=== PATIENT | female | born 1970 | race Caucasian/White ===

== ENCOUNTER 2019-11-12 23:09 | Day surgery (SDC) | payer BC ==
[2019-11-12] MEDS ORDERED: Tamsulosin 0.4 MG Cap.ER PO ONE (23:28)
[2019-11-12] MEDS ORDERED: Ketorolac 30 MG/ML SDV IVPUSH STA (23:28)
[2019-11-12] MEDS ORDERED: Ondansetron 4 MG/2 ML SDV IVPUSH ONE (23:28)
[2019-11-12] MEDS ORDERED: HYDROmorphone 1 MG/ML Syringe IVPUSH ONE (23:28)
[2019-11-12] MEDS ORDERED: Sodium Chloride 0.9% 1,000 ML IV SCH (23:30)
--- NOTE | 2019-11-12 23:32 | EDM.PDOC ---
ED HPI GENERAL MEDICAL PROBLEM - General Chief Complaint: Flank Pain Stated Complaint: SIDE PAIN Time Seen by Provider: 11/12/19 23:17 Source of Information: Reports: Patient, Family () History Limitations: Reports: No Limitations - History of Present Illness INITIAL COMMENTS - FREE TEXT/NARRATIVE: Mrs. Tobias is a very pleasant 49-year-old woman with a past medical history significant for hypertension, who states that she developed sudden onset right flank pain and nausea around 22:20 this evening. The pain does not radiate. No associated constipation, diarrhea, or urinary symptoms. The patient states that she had similar pain about 3 years ago, related to uterine hemorrhage. The patient subsequently underwent a partial hysterectomy. The patient denies recent fever, chills, cough, dyspnea, chest pain, palpitations, nausea, vomiting, constipation, diarrhea, abdominal pain, urinary symptoms, recent weight gain or weight loss, recent bloody bowel movements or black bowel movements, recent joint aches, headaches, or rashes. Here in the ED, the patient's initial BP is found to be elevated at 200/127, otherwise, she is hemodynamically stable, afebrile, saturating 97% on room air. The patient does not have a PCP. Her Biomedical Specialist is Dr. Yolanda Uriarte. She did not receive an influenza vaccine this season, and declined an offer to receive one here today. Right Flank Pain Score (Numeric/FACES): 10 - Related Data Allergies Allergy/AdvReac Type Severity Reaction Status Date / Time Penicillins Allergy Severe Hives Verified 11/12/19 23:18 Home Meds: Home Meds . [No Known Home Meds] 11/12/19 [History] Past Medical History HEENT History: Reports: Impaired Vision Other HEENT History: wears contacts Cardiovascular History: Reports: Hypertension - Past Surgical History Female Surgical History: Reports: Endometrial Ablation, Hysterectomy, Tubal Ligation Social & Family History - Tobacco Use Smoking Status *Q: Current Every Day Smoker Years of Tobacco use: 31 Packs/Tins Daily: 0.1 - Alcohol Use Alcohol Use History: Yes Days Per Week of Alcohol Use: 3 Number of Drinks Per Day: 3 Total Drinks Per Week: 9 - Recreational Drug Use Recreational Drug Use: No - Living Situation & Occupation Living situation: Reports: , with Spouse Occupation: Employed ([employer]) ED ROS GENERAL - Review of Systems Review Of Systems: Comprehensive ROS is negative, except as noted in HPI. ED EXAM, RENAL/ - Physical Exam Exam: See Below Exam Limited By: No Limitations General Appearance: Alert, WD/WN, No Apparent Distress Eye Exam: Bilateral Eye: EOMI, Normal Inspection Ears: Normal External Exam, Hearing Grossly Normal Nose: Normal Inspection Throat/Mouth: Normal Inspection, Normal Lips, Normal Voice, No Airway Compromise Head: Atraumatic, Normocephalic Neck: Normal Inspection, Full Range of Motion Respiratory/Chest: No Respiratory Distress, Lungs Clear, Normal Breath Sounds, No Accessory Muscle Use Cardiovascular: Normal Peripheral Pulses, Regular Rate, Rhythm, No Edema, No Gallop, No JVD, No Murmur, No Rub GI/Abdominal: Normal Bowel Sounds, Soft, Non-Tender, No Organomegaly, No Distention, No Abnormal Bruit, No Mass (Female) Exam: Deferred Rectal (Female) Exam: Deferred Back Exam: Normal Inspection, Full Range of Motion, CVA Tenderness (R). No: CVA Tenderness (L) Extremities: Normal Inspection, Normal Range of Motion, No Pedal Edema, Normal Capillary Refill Neurological: Alert, Oriented, Normal Cognition, No Motor/Sensory Deficits Psychiatric: Normal Affect Skin Exam: Warm, Dry, Intact, Normal Color, No Rash Course - Vital Signs Last Recorded V/S: Last Vital Signs Temp 36.3 C 11/12/19 23:18 Pulse 93 11/12/19 23:18 Resp 19 11/12/19 23:18 BP 200/127 H 11/12/19 23:18 Pulse Ox 97 11/12/19 23:18 - Orders/Labs/Meds Orders: Active Orders 24 hr Category Date Time Status Abdomen Pelvis wo Cont [CT] Stat Exams 11/12/19 23:28 Taken Sodium Chloride 0.9% [Normal Saline] 1,000 ml Med 11/12/19 23:30 Active IV ASDIRECTED Schedule Procedure [COMM] Stat Oth 11/13/19 00:57 Ordered Medication Orders Sodium Chloride (Normal Saline) 1,000 mls @ 150 mls/hr IV ASDIRECTED ESTEFANÍA Last Admin: 11/12/19 23:40 Dose: 150 mls/hr Labs: Laboratory Tests 11/12/19 11/12/19 11/13/19 Range/Units 23:37 23:37 00:05 WBC 11.33 H (3.98-10.04) K/mm3 RBC 4.44 (3.98-5.22) M/mm3 Hgb 14.9 (11.2-15.7) gm/dl Hct 44.1 (34.1-44.9) % MCV 99.3 H (79.4-94.8) fl MCH 33.6 H (25.6-32.2) pg MCHC 33.8 (32.2-35.5) g/dl RDW Std Deviation 45.1 (36.4-46.3) fL Plt Count 241 (182-369) K/mm3 MPV 9.9 (9.4-12.3) fl Neutrophils % (Manual) 56 (40-60) % Band Neutrophils % 0 (0-10) % Lymphocytes % (Manual) 37 (20-40) % Atypical Lymphs % 0 % Monocytes % (Manual) 6 (2-10) % Eosinophils % (Manual) 1 (0.7-5.8) % Basophils % (Manual) 0 L (0.1-1.2) Platelet Estimate Adequate Plt Morphology Comment Normal Macrocytosis 1+ slight Ovalocytes 2+ moderate RBC Morph Comment Not Reportable Sodium 142 (136-145) mEq/L Potassium 3.0 L (3.5-5.1) mEq/L Chloride 106 (98-107) mEq/L Carbon Dioxide 24 (21-32) mEq/L Anion Gap 15.0 (5-15) BUN 13 (7-18) mg/dL Creatinine 0.8 (0.55-1.02) mg/dL Est Cr Clr Drug Dosing 62.44 mL/min Estimated GFR (MDRD) > 60 (>60) mL/min BUN/Creatinine Ratio 16.3 (14-18) Glucose 115 H (74-106) mg/dL Calcium 9.3 (8.5-10.1) mg/dL Total Bilirubin 0.6 (0.2-1.0) mg/dL AST 42 H (15-37) U/L ALT 52 (14-59) U/L Alkaline Phosphatase 110 (46-116) U/L Total Protein 7.7 (6.4-8.2) g/dl Albumin 4.3 (3.4-5.0) g/dl Globulin 3.4 gm/dL Albumin/Globulin Ratio 1.3 (1-2) Urine Color Light yellow (Yellow) Urine Appearance Clear (Clear) Urine pH 7.0 (5.0-8.0) Ur Specific [place] 1.010 (1.005-1.030) Urine Protein Negative (Negative) Urine Glucose (UA) Negative (Negative) Urine Ketones Negative (Negative) Urine Occult Blood Trace-intact H (Negative) Urine Nitrite Negative (Negative) Urine Bilirubin Negative (Negative) Urine Urobilinogen 0.2 (0.2-1.0) Ur Leukocyte Esterase Negative (Negative) Urine RBC 0-5 (0-5) /hpf Urine WBC 0-5 (0-5) /hpf Ur Squamous Epith Cells 0-5 (0-5) /hpf Urine Bacteria Rare (FEW) /hpf Urine Mucus Not seen (FEW) /hpf Meds: Medications Generic Name Dose Route Start Last Admin Trade Name Freq PRN Reason Stop Dose Admin Sodium Chloride 1,000 mls @ 150 mls/hr 11/12/19 23:30 11/12/19 23:40 Normal Saline IV 150 mls/hr ASDIRECTED ESTEFANÍA Administration Discontinued Medications Generic Name Dose Route Start Last Admin Trade Name Freq PRN Reason Stop Dose Admin Hydromorphone HCl 1 mg 11/12/19 23:28 11/12/19 23:42 Dilaudid IVPUSH 11/12/19 23:29 1 mg ONETIME ONE Administration Hydromorphone HCl 1 mg 11/13/19 00:45 11/13/19 00:52 Dilaudid IVPUSH 11/13/19 00:46 1 mg ONETIME ONE Administration Levofloxacin/Dextrose 750 mg/ 150 mls @ 100 mls/hr 11/13/19 00:37 11/13/19 00 :52 Premix IV 11/13/19 02:06 100 mls/hr ONETIME STA Administration Metronidazole 500 mg/ Premix 100 mls @ 100 mls/hr 11/13/19 00:45 11/13/19 00: 51 IV 11/13/19 01:44 100 mls/hr ONETIME STA Administration Ketorolac Tromethamine 30 mg 11/12/19 23:28 11/12/19 23:43 Toradol IVPUSH 11/12/19 23:29 30 mg ONETIME STA Administration Ondansetron HCl 4 mg 11/12/19 23:28 11/12/19 23:41 Zofran IVPUSH 11/12/19 23:29 4 mg ONETIME ONE Administration Tamsulosin HCl 0.4 mg 11/12/19 23:28 11/12/19 23:40 Flomax PO 11/12/19 23:29 0.4 mg ONETIME ONE Administration - Re-Assessments/Exams Free Text/Narrative Re-Assessment/Exam: 11/12/19 23:29 The patient's history and physical examination are most consistent with a right ureterolith. I have therefore ordered a CT of her abdomen and pelvis with contrast, and a urinalysis. In the meantime, the patient will be given IV Dilaudid, oral Flomax, IV fluid, IV Toradol, and IV Zofran. 11/13/19 00:32 CT of the abdomen and pelvis without contrast as read by [facility] as: 1. Acute appendicitis without evidence of perforation. 2. Left inguinal hernia containing fat without evidence of strangulation. Patient's urinalysis is remarkable for trace occult blood with 0-5 RBCs, leukocyte esterase negative with 0-5 WBCs, nitrite negative with trace bacteria , and 0-5 squamous epithelial cells. The above finding is most unexpected; the patient has no tenderness to palpation of her right lower quadrant, and she does have right CVA tenderness. 11/13/19 00:[address] Orta at 00:34. He asked that I give the patient 1 g of Invanz, with the intention of taking the patient to the operating room at 06: 00. 11/13/19 00:46 The above plan was discussed with the patient and her . The patient reports an allergic reaction to penicillin in the form of hives. I will therefore order IV Levaquin and IV Flagyl instead of Invanz. 11/13/19 02:14 The patient CBC is remarkable for WBC count mildly elevated at 11.33, but with 0 % bandemia. The remainder of the CBC is unremarkable. Her CMP was remarkable for potassium mildly depressed at 3.0 and a blood glucose mildly elevated at 115. Her AST is slightly elevated at 42, with an ALT normal at 52. The remainder of her CMP is unremarkable. Based on the above, I will switch the patient's IV fluid to LR. Departure - Departure Time of Disposition: 00:47 Disposition: DC/Tfer to [facility] Condition: Good Clinical Impression: Acute appendicitis - Discharge Information *PRESCRIPTION DRUG MONITORING PROGRAM REVIEWED*: Not Applicable *COPY OF PRESCRIPTION DRUG MONITORING REPORT IN PATIENT AAMIR: Not Applicable Referrals: Yolanda Uriarte MD [Primary Care Provider] - Tam Orta MD [Physician] - Forms: ED Department Discharge Sepsis Event Note - Evaluation Sepsis Screening Result: No Definite Risk - Focused Exam Vital Signs: Vital Signs Temp Pulse Resp BP Pulse Ox 11/12/19 23:18 36.3 C 93 19 200/127 H 97 Date Exam was Performed: 11/13/19 Time Exam was Performed: 02:14 - My Orders Last 24 Hours: My Active Orders 11/12/19 23:28 Abdomen Pelvis wo Cont [CT] Stat 11/12/19 23:30 Sodium Chloride 0.9% [Normal Saline] 1,000 ml IV ASDIRECTED 11/13/19 00:57 Schedule Procedure [COMM] Stat - Assessment/Plan Last 24 Hours: My Active Orders 11/12/19 23:28 Abdomen Pelvis wo Cont [CT] Stat 11/12/19 23:30 Sodium Chloride 0.9% [Normal Saline] 1,000 ml IV ASDIRECTED 11/13/19 00:57 Schedule Procedure [COMM] Stat
[2019-11-13] MEDS ORDERED: Levofloxacin/Dextrose 5%-Water 750 MG in Premix Bag 1 BAG IV STA (00:37)
[2019-11-13] MEDS ORDERED: HYDROmorphone 1 MG/ML Syringe IVPUSH ONE ×2 (00:45→02:41)
[2019-11-13] MEDS ORDERED: metroNIDAZOLE/Normal Saline 500 MG in Premix Bag 1 BAG IV STA (00:45)
[2019-11-13] MEDS ORDERED: Lactated Ringers 1,000 ML IV SCH (02:30)
[2019-11-13] MEDS ORDERED: Ondansetron 4 MG/2 ML SDV IVPUSH ONE (04:10)
[2019-11-13] MEDS ORDERED: Metoclopramide 10 MG/2 ML SDV IVPUSH ONE (05:11)
[2019-11-13] MEDS ORDERED: Lidocaine 1% 50 ML MDV ONE (05:33)
[2019-11-13] MEDS ORDERED: Lactated Ringers 1,000 ML ONE (05:47)
[2019-11-13] MEDS ORDERED: Rocuronium 50 MG/5 ML Vial ONE (05:47)
[2019-11-13] MEDS ORDERED: Midazolam 1 MG/ML 2 ML SDV ONE (05:47)
[2019-11-13] MEDS ORDERED: Ondansetron 4 MG/2 ML SDV ONE (05:47)
[2019-11-13] MEDS ORDERED: Lidocaine 1% 4 ML ONE (05:47)
[2019-11-13] MEDS ORDERED: ceFAZolin 1 GM Vial ONE (05:47)
[2019-11-13] MEDS ORDERED: Propofol 200 MG/20 ML SDV ONE (05:47)
[2019-11-13] MEDS ORDERED: fentaNYL 250 MCG/5 ML SDV ONE (05:47)
[2019-11-13] MEDS ORDERED: Dexamethasone 4 MG/ML 5 ML MDV ONE (05:48)
[2019-11-13] MEDS ORDERED: Ketorolac 15 MG/ML SDV ONE (05:48)
[2019-11-13] MEDS ORDERED: Succinylcholine/Sod PF 100 MG/5 ML SYRINGE IV ONE (05:52)
--- NOTE | 2019-11-13 06:00 | PCM.HP.2 ---
H&P History of Present Illness - General Date of Service: 11/13/19 Admit Problem/Dx: Admission Diagnosis/Problem Admission Diagnosis/Problem Appendicitis Source of Information: Patient History Limitations: Reports: No Limitations - History of Present Illness Initial Comments - Free Text/Narative: The patient had acute onset of right flank pain last night around 10PM. Pain was severe, sharp, constant, unrelenting. No nausea/vomiting, fevers, chills. No sick contacts. The patient presented to the ED where WBC was 11, CT confirmed acute appendicitis in the retrocecal position. I reviewed the images of the CT as well. Patient was nauseated and had emesis in the ED. Onset of Symptoms: Reports: Sudden Duration of Symptoms: Reports: Day(s): (1), Constant Location: Reports: Abdomen (right flank) Quality: Reports: Sharp Severity: Severe Improves with: Reports: None Worsens with: Reports: Movement Associated Symptoms: Reports: Nausea/Vomiting Right Flank Pain Score (Numeric/FACES): 10 - Related Data Allergies/Adverse Reactions: Allergies Allergy/AdvReac Type Severity Reaction Status Date / Time Penicillins Allergy Severe Hives Verified 11/12/19 23:18 Home Medications: Home Meds . [No Known Home Meds] 11/12/19 [History] Past Medical History HEENT History: Reports: Impaired Vision Other HEENT History: wears contacts Cardiovascular History: Reports: Hypertension - Past Surgical History Female Surgical History: Reports: Endometrial Ablation, Hysterectomy, Tubal Ligation Social & Family History - Tobacco Use Smoking Status *Q: Current Every Day Smoker Years of Tobacco use: 31 Packs/Tins Daily: 0.1 - Alcohol Use Days Per Week of Alcohol Use: 3 Number of Drinks Per Day: 3 Total Drinks Per Week: 9 - Recreational Drug Use Recreational Drug Use: No - Living Situation & Occupation Living situation: Reports: , with Spouse Occupation: Employed ([employer]) H&P Review of Systems - Review of Systems: Review Of Systems: See Below General: Reports: No Symptoms HEENT: Reports: No Symptoms Pulmonary: Reports: No Symptoms Cardiovascular: Reports: No Symptoms Gastrointestinal: Reports: Abdominal Pain, Nausea, Vomiting Genitourinary: Reports: No Symptoms Musculoskeletal: Reports: No Symptoms Skin: Reports: No Symptoms Psychiatric: Reports: No Symptoms Neurological: Reports: No Symptoms Hematologic/Lymphatic: Reports: No Symptoms Exam - Exam Exam: See Below - Vital Signs Vital Signs: Last Vital Signs Temp 97.4 F 11/12/19 23:18 Pulse 93 11/12/19 23:18 Resp 19 11/12/19 23:18 BP 200/127 H 11/12/19 23:18 Pulse Ox 97 11/12/19 23:18 Weight: 67.132 kg - Exam General: Alert, Oriented, Cooperative, Mild Distress Lungs: Clear to Auscultation, Normal Respiratory Effort Cardiovascular: Regular Rate, Regular Rhythm, Normal S1, Normal S2 GI/Abdominal Exam: Soft, Non-Tender, No Organomegaly, No Distention, No Mass, Other (Right flank tenderness, moderate) - Patient Data Lab Results Last 24 hrs: Laboratory Results - last 24 hr 11/12/19 11/12/19 11/13/19 Range/Units 23:37 23:37 00:05 WBC 11.33 H (3.98-10.04) K/mm3 RBC 4.44 (3.98-5.22) M/mm3 Hgb 14.9 (11.2-15.7) gm/dl Hct 44.1 (34.1-44.9) % MCV 99.3 H (79.4-94.8) fl MCH 33.6 H (25.6-32.2) pg MCHC 33.8 (32.2-35.5) g/dl RDW Std Deviation 45.1 (36.4-46.3) fL Plt Count 241 (182-369) K/mm3 MPV 9.9 (9.4-12.3) fl Neutrophils % (Manual) 56 (40-60) % Band Neutrophils % 0 (0-10) % Lymphocytes % (Manual) 37 (20-40) % Atypical Lymphs % 0 % Monocytes % (Manual) 6 (2-10) % Eosinophils % (Manual) 1 (0.7-5.8) % Basophils % (Manual) 0 L (0.1-1.2) Platelet Estimate Adequate Plt Morphology Comment Normal Macrocytosis 1+ slight Ovalocytes 2+ moderate RBC Morph Comment Not Reportable Sodium 142 (136-145) mEq/L Potassium 3.0 L (3.5-5.1) mEq/L Chloride 106 (98-107) mEq/L Carbon Dioxide 24 (21-32) mEq/L Anion Gap 15.0 (5-15) BUN 13 (7-18) mg/dL Creatinine 0.8 (0.55-1.02) mg/dL Est Cr Clr Drug Dosing 62.44 mL/min Estimated GFR (MDRD) > 60 (>60) mL/min BUN/Creatinine Ratio 16.3 (14-18) Glucose 115 H (74-106) mg/dL Calcium 9.3 (8.5-10.1) mg/dL Total Bilirubin 0.6 (0.2-1.0) mg/dL AST 42 H (15-37) U/L ALT 52 (14-59) U/L Alkaline Phosphatase 110 (46-116) U/L Total Protein 7.7 (6.4-8.2) g/dl Albumin 4.3 (3.4-5.0) g/dl Globulin 3.4 gm/dL Albumin/Globulin Ratio 1.3 (1-2) Urine Color Light yellow (Yellow) Urine Appearance Clear (Clear) Urine pH 7.0 (5.0-8.0) Ur Specific [place] 1.010 (1.005-1.030) Urine Protein Negative (Negative) Urine Glucose (UA) Negative (Negative) Urine Ketones Negative (Negative) Urine Occult Blood Trace-intact H (Negative) Urine Nitrite Negative (Negative) Urine Bilirubin Negative (Negative) Urine Urobilinogen 0.2 (0.2-1.0) Ur Leukocyte Esterase Negative (Negative) Urine RBC 0-5 (0-5) /hpf Urine WBC 0-5 (0-5) /hpf Ur Squamous Epith Cells 0-5 (0-5) /hpf Urine Bacteria Rare (FEW) /hpf Urine Mucus Not seen (FEW) /hpf Result Diagrams: 11/12/19 23:37 11/12/19 23:37 Sepsis Event Note - Evaluation Sepsis Screening Result: No Definite Risk - Focused Exam Vital Signs: Vital Signs Temp Pulse Resp BP Pulse Ox 11/12/19 23:18 97.4 F 93 19 200/127 H 97 Date Exam was Performed: 11/13/19 Time Exam was Performed: 05:55 Problem List Initiated/Reviewed/Updated: No Orders Last 24hrs: Active Orders 24 hr Category Date Time Status Patient Status [ADT] Routine ADT 11/13/19 05:11 Active Abdomen Pelvis wo Cont [CT] Stat Exams 11/12/19 23:28 Taken Lactated Ringers [Ringers, Lactated] 1,000 ml Med 11/13/19 02:30 Active IV ASDIRECTED Schedule Procedure [COMM] Stat Oth 11/13/19 00:57 Ordered Medication Orders Lactated Ringer's (Ringers, Lactated) 1,000 mls @ 150 mls/hr IV ASDIRECTED [facility] Last Admin: 11/13/19 03:29 Dose: 150 mls/hr Assessment/Plan Comment:: Patient has acute appendicitis. I recommended we proceed with laparoscopic appendectomy, possible open. I discussed with the patient risks, benefits and alternatives. Risks discussed include injury to adjacent structures, infection, bleeding, reactions to medications and need for additional procedures. The patient understood, agreed to proceed with the procedure and informed consent was obtained. - Mortality Measure Prognosis:: Good
[2019-11-13] MEDS ORDERED: Clindamycin Phosphate 300 MG/2 ML SDV ONE ×2 (06:27→06:28)
[2019-11-13] MEDS ORDERED: Sodium Chloride 0.9% 200 ML ONE (06:28)
[2019-11-13] MEDS ORDERED: Ondansetron 4 MG/2 ML SDV IVPUSH PRN (06:42)
[2019-11-13] MEDS ORDERED: fentaNYL 100 MCG/2 ML SDV IVPUSH PRN (06:42)
[2019-11-13] MEDS ORDERED: HYDROmorphone 0.5 MG/0.5 ML Syringe IVPUSH PRN (06:42)
--- NOTE | 2019-11-13 06:42 | PCM.PREANE ---
Preanesthetic Assessment - Procedure Proposed Procedure: Laparoscopic Appendectomy - Anesthesia/Transfusion/Family Hx Anesthesia History: Prior Anesthesia Without Reaction Family History of Anesthesia Reaction: No - Review of Systems General: No Symptoms Pulmonary: No Symptoms (Some day smoker, average 1 pack per week.) Cardiovascular: No Symptoms, Other (History of Hypertension, not currently on BP medication monitoring. ) Gastrointestinal: Abdominal Pain, Nausea, Vomiting Neurological: No Symptoms Other: Reports: None - Physical Assessment NPO Status Date: 11/12/19 NPO Status Time: 19:00 Vital Signs: Last Vital Signs Temp 36.3 C 11/12/19 23:18 Pulse 89 11/13/19 05:58 Resp 19 11/13/19 05:58 BP 146/90 H 11/13/19 05:58 Pulse Ox 95 11/13/19 05:58 Height: 1.52 m Weight: 67.132 kg ASA Class: 2E Mental Status: Alert & Oriented x3 Airway Class: Mallampati = 2 Dentition: Reports: Normal Dentition Thyro-Mental Finger Breadths: 3 Mouth Opening Finger Breadths: 3 ROM/Head Extension: Full Lungs: Clear to Auscultation, Normal Respiratory Effort Cardiovascular: Regular Rate, Regular Rhythm - Lab Values: Laboratory Last Values WBC 11.33 K/mm3 (3.98-10.04) H 11/12/19 23:37 RBC 4.44 M/mm3 (3.98-5.22) 11/12/19 23:37 Hgb 14.9 gm/dl (11.2-15.7) 11/12/19 23:37 Hct 44.1 % (34.1-44.9) 11/12/19 23:37 MCV 99.3 fl (79.4-94.8) H 11/12/19 23:37 MCH 33.6 pg (25.6-32.2) H 11/12/19 23:37 MCHC 33.8 g/dl (32.2-35.5) 11/12/19 23:37 RDW Std Deviation 45.1 fL (36.4-46.3) 11/12/19 23:37 Plt Count 241 K/mm3 (182-369) 11/12/19 23:37 MPV 9.9 fl (9.4-12.3) 11/12/19 23:37 Neutrophils % (Manual) 56 % (40-60) 11/12/19 23:37 Band Neutrophils % 0 % (0-10) 11/12/19 23:37 Lymphocytes % (Manual) 37 % (20-40) 11/12/19 23:37 Atypical Lymphs % 0 % 11/12/19 23:37 Monocytes % (Manual) 6 % (2-10) 11/12/19 23:37 Eosinophils % (Manual) 1 % (0.7-5.8) 11/12/19 23:37 Basophils % (Manual) 0 (0.1-1.2) L 11/12/19 23:37 Platelet Estimate Adequate 11/12/19 23:37 Plt Morphology Comment Normal 11/12/19 23:37 Macrocytosis 1+ slight 11/12/19 23:37 Ovalocytes 2+ moderate 11/12/19 23:37 RBC Morph Comment Not Reportable 11/12/19 23:37 Sodium 142 mEq/L (136-145) 11/12/19 23:37 Potassium 3.0 mEq/L (3.5-5.1) L 11/12/19 23:37 Chloride 106 mEq/L (98-107) 11/12/19 23:37 Carbon Dioxide 24 mEq/L (21-32) 11/12/19 23:37 Anion Gap 15.0 (5-15) 11/12/19 23:37 BUN 13 mg/dL (7-18) 11/12/19 23:37 Creatinine 0.8 mg/dL (0.55-1.02) 11/12/19 23:37 Est Cr Clr Drug Dosing 62.44 mL/min 11/12/19 23:37 Estimated GFR (MDRD) > 60 mL/min (>60) 11/12/19 23:37 BUN/Creatinine Ratio 16.3 (14-18) 11/12/19 23:37 Glucose 115 mg/dL (74-106) H 11/12/19 23:37 Calcium 9.3 mg/dL (8.5-10.1) 11/12/19 23:37 Total Bilirubin 0.6 mg/dL (0.2-1.0) 11/12/19 23:37 AST 42 U/L (15-37) H 11/12/19 23:37 ALT 52 U/L (14-59) 11/12/19 23:37 Alkaline Phosphatase 110 U/L (46-116) 11/12/19 23:37 Total Protein 7.7 g/dl (6.4-8.2) 11/12/19 23:37 Albumin 4.3 g/dl (3.4-5.0) 11/12/19 23:37 Globulin 3.4 gm/dL 11/12/19 23:37 Albumin/Globulin Ratio 1.3 (1-2) 11/12/19 23:37 Urine Color Light yellow (Yellow) 11/13/19 00:05 Urine Appearance Clear (Clear) 11/13/19 00:05 Urine pH 7.0 (5.0-8.0) 11/13/19 00:[address] [place] 1.010 (1.005-1.030) 11/13/19 00:05 Urine Protein Negative (Negative) 11/13/19 00:05 Urine Glucose (UA) Negative (Negative) 11/13/19 00:05 Urine Ketones Negative (Negative) 11/13/19 00:05 Urine Occult Blood Trace-intact (Negative) H 11/13/19 00:05 Urine Nitrite Negative (Negative) 11/13/19 00:05 Urine Bilirubin Negative (Negative) 11/13/19 00:05 Urine Urobilinogen 0.2 (0.2-1.0) 11/13/19 00:05 Ur Leukocyte Esterase Negative (Negative) 11/13/19 00:05 Urine RBC 0-5 /hpf (0-5) 11/13/19 00:05 Urine WBC 0-5 /hpf (0-5) 11/13/19 00:05 Ur Squamous Epith Cells 0-5 /hpf (0-5) 11/13/19 00:05 Urine Bacteria Rare /hpf (FEW) 11/13/19 00:05 Urine Mucus Not seen /hpf (FEW) 11/13/19 00:05 - Allergies Allergies/Adverse Reactions: Allergies Allergy/AdvReac Type Severity Reaction Status Date / Time Penicillins Allergy Severe Hives Verified 11/12/19 23:18 - Anesthesia Plan Pre-Op Medication Ordered: Anxiolytic - Acknowledgements Anesthesia Type Planned: General Anesthesia Pt an Appropriate Candidate for the Planned Anesthesia: Yes Alternatives and Risks of Anesthesia Discussed w Pt/Guardian: Yes Pt/Guardian Understands and Agrees with Anesthesia Plan: Yes PreAnesthesia Questionnaire HEENT History: Reports: Impaired Vision Other HEENT History: wears contacts Cardiovascular History: Reports: Hypertension - Past Surgical History Female Surgical History: Reports: Endometrial Ablation, Hysterectomy, Tubal Ligation - SUBSTANCE USE Smoking Status *Q: Current Every Day Smoker Tobacco Use Within Last Twelve Months: Cigarettes Days Per Week of Alcohol Use: 3 Number of Drinks Per Day: 3 Total Drinks Per Week: 9 Recreational Drug Use History: No - HOME MEDS Home Medications: Home Meds . [No Known Home Meds] 11/12/19 [History] - CURRENT (IN HOUSE) MEDS Current Meds: Current Medications Lactated Ringer's (Ringers, Lactated) 1,000 mls @ 150 mls/hr IV ASDIRECTED [facility] Last Admin: 11/13/19 03:29 Dose: 150 mls/hr Discontinued Medications Cefazolin Sodium (Ancef) Confirm Administered Dose 2 gm .ROUTE .STK-MED ONE Stop: 11/13/19 05:48 Clindamycin Phosphate (Cleocin) Confirm Administered Dose 300 mg .ROUTE .STK- MED ONE Stop: 11/13/19 06:28 Clindamycin Phosphate (Cleocin) Confirm Administered Dose 300 mg .ROUTE .STK- MED ONE Stop: 11/13/19 06:29 Dexamethasone (Dexamethasone) Confirm Administered Dose 20 mg .ROUTE .STK-MED ONE Stop: 11/13/19 05:49 Fentanyl (Sublimaze) Confirm Administered Dose 250 mcg .ROUTE .STK-MED ONE Stop: 11/13/19 05:48 Hydromorphone HCl (Dilaudid) 1 mg IVPUSH ONETIME ONE Stop: 11/12/19 23:29 Last Admin: 11/12/19 23:42 Dose: 1 mg Hydromorphone HCl (Dilaudid) 1 mg IVPUSH ONETIME ONE Stop: 11/13/19 00:46 Last Admin: 11/13/19 00:52 Dose: 1 mg Hydromorphone HCl (Dilaudid) 1 mg IVPUSH ONETIME ONE Stop: 11/13/19 02:42 Last Admin: 11/13/19 02:49 Dose: 1 mg Sodium Chloride (Normal Saline) 1,000 mls @ 150 mls/hr IV ASDIRECTED [facility] Last Admin: 11/12/19 23:40 Dose: 150 mls/hr Levofloxacin/Dextrose 750 mg/ (Premix) 150 mls @ 100 mls/hr IV ONETIME STA Stop: 11/13/19 02:06 Last Admin: 11/13/19 00:52 Dose: 100 mls/hr Metronidazole 500 mg/ Premix 100 mls @ 100 mls/hr IV ONETIME STA Stop: 11/13/19 01:44 Last Admin: 11/13/19 00:51 Dose: 100 mls/hr Lidocaine HCl (Xylocaine-Mpf 1%) Confirm Administered Dose 4 mls @ as directed .ROUTE .STK-MED ONE Stop: 11/13/19 05:48 Lactated Ringer's (Ringers, Lactated) Confirm Administered Dose 1,000 mls @ as directed .ROUTE .STK-MED ONE Stop: 11/13/19 05:48 Sodium Chloride (Normal Saline) Confirm Administered Dose 200 mls @ as directed .ROUTE .STK-MED ONE Stop: 11/13/19 06:29 Ketorolac Tromethamine (Toradol) 30 mg IVPUSH ONETIME STA Stop: 11/12/19 23:29 Last Admin: 11/12/19 23:43 Dose: 30 mg Ketorolac Tromethamine (Toradol) Confirm Administered Dose 15 mg .ROUTE .STK- MED ONE Stop: 11/13/19 05:49 Lidocaine HCl (Xylocaine 1%) Confirm Administered Dose 50 ml .ROUTE .STK-MED ONE Stop: 11/13/19 05:34 Last Admin: 11/13/19 06:29 Dose: 50 ml Metoclopramide HCl (Reglan) 10 mg IVPUSH ONETIME ONE Stop: 11/13/19 05:12 Last Admin: 11/13/19 05:14 Dose: 10 mg Midazolam HCl (Versed 1 Mg/Ml) Confirm Administered Dose 2 mg .ROUTE .STK-MED ONE Stop: 11/13/19 05:48 Ondansetron HCl (Zofran) 4 mg IVPUSH ONETIME ONE Stop: 11/12/19 23:29 Last Admin: 11/12/19 23:41 Dose: 4 mg Ondansetron HCl (Zofran) 4 mg IVPUSH ONETIME ONE Stop: 11/13/19 04:11 Last Admin: 11/13/19 04:11 Dose: 4 mg Ondansetron HCl (Zofran) Confirm Administered Dose 4 mg .ROUTE .STK-MED ONE Stop: 11/13/19 05:48 Propofol (Diprivan 20 Ml) Confirm Administered Dose 400 mg .ROUTE .STK-MED ONE Stop: 11/13/19 05:48 Rocuronium [place] (Zemuron) Confirm Administered Dose 50 mg .ROUTE .STK-MED ONE Stop: 11/13/19 05:48 Tamsulosin HCl (Flomax) 0.4 mg PO ONETIME ONE Stop: 11/12/19 23:29 Last Admin: 11/12/19 23:40 Dose: 0.4 mg
--- NOTE | 2019-11-13 07:05 | CT ---
CT abdomen and pelvis Technique: Multiple axial sections were obtained from above the dome of the diaphragm inferiorly through the pubic symphysis. Intravenous and oral contrast not utilized. Study has been performed as a ureteral stone protocol. Comparison: Previous abdomen and pelvic CT exam of 01/05/14. Findings: Appendix is slightly prominent in size. Inflammatory change is noted around the appendix. Appendix is retrocecal in location. Findings are compatible with appendicitis. Other findings: Visualised lung bases show nothing acute. Liver contains no focal parenchymal abnormality. Spleen appears within normal limits. Adrenal glands show no nodule. Pancreas is within normal limits. Kidneys show no abnormal calcifications. No ureteral dilatation or ureteral stone is seen. Aorta shows no aneurysm. No retroperitoneal adenopathy is seen. No mesenteric abnormalities are seen. No pelvic mass or adenopathy is identified. Small bilateral fat-containing inguinal hernias noted on both sides. Bone window settings were reviewed which appear within normal limits for the patient's age. Impression: 1. Findings compatible with appendicitis as described above. 2. Small bilateral fat-containing inguinal hernias. Diagnostic code #5 This report was dictated in MDT I agree with preliminary report from susanne, finalized on 11/13/19, 1:30 AM Central Time
--- NOTE | 2019-11-13 07:52 | PCM.POSTAN ---
POST ANESTHESIA ASSESSMENT - MENTAL STATUS Mental Status: Alert, Oriented - VITAL SIGNS Vital Signs: Last Vital Signs Temp 97.4 F 11/12/19 23:18 Pulse 89 11/13/19 05:58 Resp 19 11/13/19 05:58 BP 146/90 H 11/13/19 05:58 Pulse Ox 95 11/13/19 05:58 122/80 96% 93 16 98.5 - RESPIRATORY Respiratory Status: Respiratory Rate WNL, Airway Patent, O2 Saturation Stable, Supplemental Oxygen - CARDIOVASCULAR CV Status: Pulse Rate WNL, Blood Pressure Stable - GASTROINTESTINAL GI Status: No Symptoms - PAIN Pain Score: 0 - POST OP HYDRATION Hydration Status: Adequate & Stable
[2019-11-13] MEDS ORDERED: traMADol 50 MG Tab PO PRN (08:25)
[2019-11-13] MEDS ORDERED: traMADol 50 MG Tab PO SCH (08:30)
[2019-11-13] MEDS ORDERED: Haloperidol Lactate 5 MG/ML SDV IVPUSH STA (08:38)
--- NOTE | 2019-11-13 08:56 | OR ---
DATE OF OPERATION: 11/13/2019 SURGEON: Tam Orta MD PREOPERATIVE DIAGNOSIS: Acute appendicitis. POSTOPERATIVE DIAGNOSIS: Acute appendicitis. OPERATION PERFORMED: Laparoscopic appendectomy. ANESTHESIA: General endotracheal. ESTIMATED BLOOD LOSS: 20 mL. COMPLICATIONS: None. INDICATION AND CONSENT: Ms. Tobias is a 49-year-old female who started having right flank pain over the last 12 hours. The patient presented to the emergency department where a CT scan was done and confirmed appendicitis. White count was 17. I saw the patient, recommended to proceed with laparoscopic appendectomy, possible open. We discussed risks, benefits, and alternatives, and informed consent was obtained after the patient agreed to proceed with the procedure. The patient was taken to the operating room, placed in supine position. Following induction of general endotracheal anesthesia, time-out was performed. Abdomen was prepped and draped in the usual sterile fashion. Then, clindamycin was given for preop antibiotics and the patient had been padded and SCDs were on. Then, we began by injecting local anesthetic in the left upper quadrant. Veress needle was introduced and the abdomen was insufflated to 15 mmHg. Then, 5 mm trocar was placed in the left lower quadrant and the abdomen was inspected. There was no injury to the trocar insertion or Veress needle insertion. Then, another 12 was placed in the infraumbilical position and then one more 5 was placed in the suprapubic position. Then, the appendix was in the retrocecal area and this was found by moving bowels. There were some adhesions to the lateral abdominal wall around the appendix from the omentum as well as the part of the small bowel mesentery. These were freed from the lateral abdominal wall, allowing the appendix to become anterior. There were dense adhesions of the small bowel mesentery as well as mesoappendix to the small bowel, these were taken down with LigaSure Impact until the appendiceal base was freed. A window was made below the appendiceal base at the cecum and then a 55 mm blue load was used to transect the appendix at its base using Endo-PNEELOPE stapler, then I attempted to place a stapler in the mesoappendix, but this was bulky due to dense adhesions to the small bowel. Therefore, I used LigaSure Impact to transect the mesoappendix completely. Appendix was freed, placed in the EndoCatch bag. There was no bleeding upon reinspection of the area. Small amount of blood was around the dissection area. This was wicked with gauze. Once this was done, the abdomen was reinspected, appeared to be okay. The appendix was removed through the infraumbilical incision. Then, the infraumbilical fascia was closed with 0 Vicryl stitches using Akbar-Clyde device and the abdomen was desufflated. The skin at all 3 sites was closed with 4-0 Monocryl. This marked the end of the procedure. At the end of the procedure, instruments, sharps, and sponges were counted and found to be correct x2. The patient was awoken from anesthesia and taken to the PACU in stable condition. The patient will be discharged home later today after tolerating fluids. The patient to come back in 2 weeks for postop check. In the meantime, the patient is not to lift more than 20 pounds. DESCRIPTION OF PROCEDURE: MMODAL /[id number]
--- NOTE | 2019-11-13 09:17 | PCM48HPAN ---
Post Anesthesia Note - EVALUATION WITHIN 48HRS OF ANESTHETIC Vital Signs in Normal Range: Yes Patient Participated in Evaluation: Yes Respiratory Function Stable: Yes Airway Patent: Yes Cardiovascular Function Stable: Yes Hydration Status Stable: Yes Pain Control Satisfactory: Yes Nausea and Vomiting Control Satisfactory: Yes Mental Status Recovered: Yes Vital Signs: Last Vital Signs Temp 36.6 C 11/13/19 08:30 Pulse 73 11/13/19 09:00 Resp 16 11/13/19 09:00 BP 129/63 11/13/19 09:00 Pulse Ox 92 L 11/13/19 09:00
[2019-11-13 11:04] VITALS: PULSE 92
[2019-11-13 11:53] VITALS: BP 143/96
== END 2019-11-13 11:42 | disposition home or self-care (01) ==
LOC: JD.ED 23:09 → JD.SDS 11-13 05:04
PROVIDERS: ATTEND Surgery
DX: K35.33 Acute appendicitis with perforation, localized peritonitis, and gangrene, with abscess (principal); I10 Essential (primary) hypertension; F17.210 Nicotine dependence, cigarettes, uncomplicated; Z88.0 Allergy status to penicillin
CPT/HCPCS: 36415; 44970; 74176; 80053; 81001; 85007; 85027; 96361; 96365; 96366; 96367; 96375; 96376; 99285; A9270; J0330; J0690; J1100; J1170; J1630; J1885; J1956; J2001; J2250; J2370; J2405; J2704; J2710; J2765; J3010; J3490; J7030; J7050; J7120; S0077; 00840

== ENCOUNTER 2020-02-03 22:08 | Emergency (ER) | payer BC ==
--- NOTE | 2020-02-03 22:48 | EDM.PDOC ---
ED HPI GENERAL MEDICAL PROBLEM - General Chief Complaint: Eye Problems Stated Complaint: left eye issues getting headaches now Time Seen by Provider: 02/03/20 22:17 Source of Information: Reports: Patient History Limitations: Reports: No Limitations - History of Present Illness INITIAL COMMENTS - FREE TEXT/NARRATIVE: TRIAGE NOTE -- Pt in with swelling and redness to eye near tearduct and undereye. Pain radiating into head and states she is dizzy. Feels that she has had fever at home. Went to [facility] yesterday and started on Erythromycin ointment, sumatriptan, and clindamycin. [ End ] 3 or 4 days ago the patient noticed a small white feature medially lower eyelid which she thought to represent an inflamed tear duct. There was some itching and pain and she apparently rubbed at it not infrequently with her hand. Pain and swelling progressed. On the previous day she was seen in clinic with prescriptions ordered as above. And the progression of the symptoms there was swelling of the tissue under the eye and this extended into painful swelling of the left side of the face. She also had been having headaches associated with this. No respiratory symptoms. No rohan risk factors otherwise except the patient does have hypertension. No other treatment or intervention other than as noted above. Left Eye Pain Score (Numeric/FACES): 9 - Related Data Allergies Allergy/AdvReac Type Severity Reaction Status Date / Time Penicillins Allergy Severe Hives Verified 11/12/19 23:18 Home Meds: Home Meds Clindamycin HCl 300 mg PO TID 02/03/20 [History] Erythromycin Base in Ethanol [Erythromycin 2% Gel] 1 cm EYEBOTH QID 02/03/20 [ History] SUMAtriptan [Imitrex] 25 mg PO ASDIRECTED 02/03/20 [History] lisinopriL [Lisinopril] 10 mg PO DAILY 02/03/20 [History] Past Medical History HEENT History: Reports: Impaired Vision Other HEENT History: wears contacts Cardiovascular History: Reports: Hypertension - Past Surgical History GI Surgical History: Reports: Appendectomy Female Surgical History: Reports: Endometrial Ablation, Hysterectomy, Tubal Ligation Social & Family History - Tobacco Use Smoking Status *Q: Current Some Day Smoker Years of Tobacco use: 30 Packs/Tins Daily: 0.1 - Caffeine Use Caffeine Use: Reports: None - Recreational Drug Use Recreational Drug Use: No - Living Situation & Occupation Living situation: Reports: , with Spouse Occupation: Employed ([employer]) ED ROS GENERAL - Review of Systems Review Of Systems: Comprehensive ROS is negative, except as noted in HPI. ED EXAM GENERAL W FULL EYE - Physical Exam Exam: See Below Exam Limited By: No Limitations General Appearance: Alert, WD/WN Eye Exam: Left Eye: Corneal Abrasion, Periorbital Changes (Soft tissue below left arm puffy mildly edematous), Bilateral Eye: EOMI, PERRL Eyelids: Left: Stye (Tiny white protuberant feature left lower lid medially) Conjunctiva & Sclera: Left: Injected Cornea Exam: Bilateral: Normal Appearance Extraocular Movements: Bilateral: Intact Pupils: Normal Accommodation Ears: Normal External Exam Nose: Normal Inspection Throat/Mouth: Normal Inspection Head: Atraumatic Respiratory/Chest: No Respiratory Distress, Lungs Clear, Normal Breath Sounds Cardiovascular: Regular Rate, Rhythm, No Edema GI/Abdominal: Soft, Non-Tender Back Exam: Normal Inspection Extremities: Normal Inspection, Non-Tender Neurological: Alert, Oriented, Normal Cognition, No Motor/Sensory Deficits Psychiatric: Normal Affect, Normal Mood Skin Exam: Warm, Dry Comments: Left side of face is mildly edematous. There is definite puffiness of the inferior orbital soft tissue. The face is tender throughout on the left particularly in the area of the cheek and below the eye. No increased warmth or erythema is noted. Course - Vital Signs Last Recorded V/S: Last Vital Signs Temp 36.2 C 02/03/20 22:17 Pulse 104 H 02/03/20 22:17 Resp 16 02/03/20 22:17 BP 192/144 H 02/03/20 22:17 Pulse Ox 97 02/03/20 22:17 - Orders/Labs/Meds Orders: Active Orders 24 hr Category Date Time Status Head wo Cont [CT] Stat Exams 02/04/20 00:14 Taken Max Facial Sinus w Cont [CT] Stat Exams 02/04/20 00:14 Taken Labs: Laboratory Tests 02/03/20 02/03/20 02/03/20 Range/Units 22:50 22:50 22:50 WBC (3.98-10.04) K/mm3 RBC (3.98-5.22) M/mm3 Hgb (11.2-15.7) gm/dl Hct (34.1-44.9) % MCV (79.4-94.8) fl MCH (25.6-32.2) pg MCHC (32.2-35.5) g/dl RDW Std Deviation (36.4-46.3) fL Plt Count (182-369) K/mm3 MPV (9.4-12.3) fl Neutrophils % (Manual) (40-60) % Band Neutrophils % (0-10) % Lymphocytes % (Manual) (20-40) % Atypical Lymphs % % Monocytes % (Manual) (2-10) % Eosinophils % (Manual) (0.7-5.8) % Basophils % (Manual) (0.1-1.2) Platelet Estimate RBC Morph Comment Sodium (136-145) mEq/L Potassium (3.5-5.1) mEq/L Chloride (98-107) mEq/L Carbon Dioxide (21-32) mEq/L Anion Gap (5-15) BUN (7-18) mg/dL Creatinine (0.55-1.02) mg/dL Est Cr Clr Drug Dosing mL/min Estimated GFR (MDRD) (>60) mL/min BUN/Creatinine Ratio (14-18) Glucose (74-106) mg/dL Calcium (8.5-10.1) mg/dL Total Bilirubin (0.2-1.0) mg/dL AST (15-37) U/L ALT (14-59) U/L Alkaline Phosphatase (46-116) U/L Troponin I (0.00-0.056) ng/mL Total Protein (6.4-8.2) g/dl Albumin (3.4-5.0) g/dl Globulin gm/dL Albumin/Globulin Ratio (1-2) Urine Color Yellow (Yellow) Urine Appearance Clear (Clear) Urine pH 7.0 (5.0-8.0) Ur Specific [place] 1.015 (1.005-1.030) Urine Protein Negative (Negative) Urine Glucose (UA) Negative (Negative) Urine Ketones Negative (Negative) Urine Occult Blood Negative (Negative) Urine Nitrite Negative (Negative) Urine Bilirubin Negative (Negative) Urine Urobilinogen 0.2 (0.2-1.0) Ur Leukocyte Esterase Negative (Negative) Urine HCG, Qual Negative (NEGATIVE) Urine Opiates Screen Negative (YGBQYX=886) Ur Buprenorphine Scrn Negative (CUTOFF=10) Ur Oxycodone Screen Negative (XWT3YS=096) Urine Methadone Screen Negative (LUYOGH=284) Ur Propoxyphene Screen Negative (ZCSCTW=405) Ur Barbiturates Screen Negative (MZXCCX=476) Ur Tricyclics Screen Negative (KHKIXF=641) Ur Phencyclidine Scrn Negative (CUTOFF=25) Ur Amphetamine Screen Negative (HYUGRE=369) U Methamphetamines Scrn Negative (RURCFC=210) U Benzodiazepines Scrn Negative (VUNCPY=940) U Cocaine Metab Screen Negative (ITRLEU=754) U Marijuana (THC) Screen Negative (CUTOFF=50) 02/03/20 02/03/20 Range/Units 23:00 23:00 WBC 7.52 (3.98-10.04) K/mm3 RBC 4.24 (3.98-5.22) M/mm3 Hgb 13.8 (11.2-15.7) gm/dl Hct 41.8 (34.1-44.9) % MCV 98.6 H (79.4-94.8) fl MCH 32.5 H (25.6-32.2) pg MCHC 33.0 (32.2-35.5) g/dl RDW Std Deviation 44.8 (36.4-46.3) fL Plt Count 287 (182-369) K/mm3 MPV 9.8 (9.4-12.3) fl Neutrophils % (Manual) 55 (40-60) % Band Neutrophils % 1 (0-10) % Lymphocytes % (Manual) 36 (20-40) % Atypical Lymphs % 0 % Monocytes % (Manual) 7 (2-10) % Eosinophils % (Manual) 1 (0.7-5.8) % Basophils % (Manual) 0 L (0.1-1.2) Platelet Estimate Adequate RBC Morph Comment Normal Sodium 143 (136-145) mEq/L Potassium 3.3 L (3.5-5.1) mEq/L Chloride 105 (98-107) mEq/L Carbon Dioxide 25 (21-32) mEq/L Anion Gap 16.3 H (5-15) BUN 13 (7-18) mg/dL Creatinine 0.8 (0.55-1.02) mg/dL Est Cr Clr Drug Dosing 65.60 mL/min Estimated GFR (MDRD) > 60 (>60) mL/min BUN/Creatinine Ratio 16.3 (14-18) Glucose 105 (74-106) mg/dL Calcium 9.0 (8.5-10.1) mg/dL Total Bilirubin 0.2 (0.2-1.0) mg/dL AST 88 H (15-37) U/L ALT 67 H (14-59) U/L Alkaline Phosphatase 107 (46-116) U/L Troponin I < 0.017 (0.00-0.056) ng/mL Total Protein 7.4 (6.4-8.2) g/dl Albumin 4.0 (3.4-5.0) g/dl Globulin 3.4 gm/dL Albumin/Globulin Ratio 1.2 (1-2) Urine Color (Yellow) Urine Appearance (Clear) Urine pH (5.0-8.0) Ur Specific [place] (1.005-1.030) Urine Protein (Negative) Urine Glucose (UA) (Negative) Urine Ketones (Negative) Urine Occult Blood (Negative) Urine Nitrite (Negative) Urine Bilirubin (Negative) Urine Urobilinogen (0.2-1.0) Ur Leukocyte Esterase (Negative) Urine HCG, Qual (NEGATIVE) Urine Opiates Screen (AWSAIM=703) Ur Buprenorphine Scrn (CUTOFF=10) Ur Oxycodone Screen (AHO1JQ=564) Urine Methadone Screen (GSNVRH=259) Ur Propoxyphene Screen (DXTLIL=701) Ur Barbiturates Screen (HTYMWI=340) Ur Tricyclics Screen (SADSYL=624) Ur Phencyclidine Scrn (CUTOFF=25) Ur Amphetamine Screen (ARVNZJ=982) U Methamphetamines Scrn (BAUCQA=962) U Benzodiazepines Scrn (MJNVSB=970) U Cocaine Metab Screen (BIOEWP=628) U Marijuana (THC) Screen (CUTOFF=50) Meds: Medications Discontinued Medications Generic Name Dose Route Start Last Admin Trade Name Freq PRN Reason Stop Dose Admin Metoclopramide HCl 10 mg 02/04/20 00:46 02/04/20 00:52 Reglan IVPUSH 02/04/20 00:47 10 mg ONETIME ONE Administration - Re-Assessments/Exams Free Text/Narrative Re-Assessment/Exam: 02/04/20 01:35 The patient has had blood work as well as CT imaging and urinalysis. There are no salient abnormal findings. CT shows evidence of swelling but no clear indication of infection. There is no elevated white count or fever. Headache is resolved after 1 dose of Reglan. Discussed fully with patient and her mother. It is not clear what the condition of the eyelid and surrounding tissue actually represents. It is perhaps an atypical hordeolum. Referred to ophthalmology. Precautions for return to ER. Recommend continuing with the clindamycin prescribed earlier. Sumatriptan hand is best not being used at this point. Discontinue the eye ointment as this may alter the appearance of the eye prior to seeing the senior software development manager. There is no clear indication of an infection in the eye. Departure - Departure Time of Disposition: 01:37 Disposition: Home, Self-Care 01 Condition: Good Clinical Impression: Facial swelling Eyelid cyst Qualifiers: Laterality: left Eyelid: lower Qualified Code(s): H02.825 - Cysts of left lower eyelid Headache Qualifiers: Headache type: unspecified Headache chronicity pattern: acute headache Intractability: not intractable Qualified Code(s): R51 - Headache - Discharge Information Referrals: Elizabeth New NP [Primary Care Provider] - Forms: ED Department Discharge Additional Instructions: You have been seen for concerns regarding facial swelling and a feature of the left lower eyelid which seems to represent a cystic structure. We do not have a satisfactory explanation for this based on CAT scan and blood work. It is recommended that you see senior software development manager UMANG. We have given you contact information and you should call this morning and get in within the next day or so. Even though there is not real persuasive evidence of an infection in the facial tissue it would be reasonable to continue taking the clindamycin. Discontinue the eye ointment as it may change the appearance of the eye and complicate ophthalmological assessment. The sumatriptan is unlikely to be of any use to you at this point. Do not hesitate to return to the emergency department immediately for fever, worsening of your symptoms such as swelling, redness, nausea vomiting severe headache or any troubling symptom at all. Sepsis Event Note (ED) - Evaluation Sepsis Screening Result: No Definite Risk - Focused Exam Vital Signs: Vital Signs Temp Pulse Resp BP Pulse Ox 02/03/20 22:17 36.2 C 104 H 16 192/144 H 97 - My Orders Last 24 Hours: My Active Orders 02/04/20 00:14 Head wo Cont [CT] Stat Max Facial Sinus w Cont [CT] Stat - Assessment/Plan Last 24 Hours: My Active Orders 02/04/20 00:14 Head wo Cont [CT] Stat Max Facial Sinus w Cont [CT] Stat
[2020-02-04] MEDS ORDERED: Metoclopramide 10 MG/2 ML SDV IVPUSH ONE (00:46)
[2020-02-04 01:53] VITALS: BP 166/109; PULSE 75
--- NOTE | 2020-02-04 08:56 | CT ---
Head CT Technique: Multiple axial sections through the brain were obtained. Intravenous contrast was not utilized. Comparison: No prior intracranial imaging is available. Findings: Ventricles along with basal cisterns and sulci over the convexities are within normal limits for the patient's age. No abnormal parenchymal densities are seen. No evidence of intracranial hemorrhage. No midline shift or mass-effect is seen. Minimal fluid is seen within the left maxillary sinus. Other visualized sinuses are clear. Mastoid sinuses are clear. No acute calvarial finding is seen. Impression: 1. Minimal fluid within the left maxillary sinus most likely representing retained secretions. 2. No acute intracranial abnormality is appreciated. Diagnostic code #2 This report was dictated in MDT I agree with preliminary report from [facility], finalized on 02/04/20, 2:06 AM Central Daylight Time
--- NOTE | 2020-02-04 08:56 | CT ---
CT facial bones Technique: Multiple axial sections facial bones were obtained. Reconstructed coronal and sagittal images were obtained. Intravenous contrast was utilized. Findings: Small amount of fluid is seen within the left maxillary sinus. Mild mucosal thickening is noted within the left maxillary sinus. Other sinuses are clear. Mastoid sinuses are clear. No acute osseous abnormality is appreciated. Soft tissue swelling is noted within the left periorbital region. No retrobulbar abnormality is seen. Right and left globes are symmetric. No additional soft tissue abnormalities are appreciated within the neck or face. Impression: 1. Nonspecific soft tissue swelling within the left periorbital region. 2. Minimal fluid within the left maxillary sinus as well as mild mucosal thickening with the left maxillary sinus. 3. No additional abnormality is appreciated. Diagnostic code #3 This report was dictated in MDT I agree with preliminary report from [facility], finalized on 02/04/20, 2:04 AM Central Daylight Time
== END 2020-02-04 01:50 | disposition home or self-care (01) ==
LOC: JD.ED 22:08
DX: H02.825 Cysts of left lower eyelid (principal); R51 Headache; I10 Essential (primary) hypertension; F17.210 Nicotine dependence, cigarettes, uncomplicated; Z88.0 Allergy status to penicillin; Z79.899 Other long term (current) drug therapy
CPT/HCPCS: 36415; 70450; 70487; 80053; 80306; 81003; 81025; 84484; 85007; 85027; 96374; 99284; J2765; 99283

== ENCOUNTER 2020-10-09 05:19 | Emergency (ER) | payer BC, OTHER ==
[2020-10-09 05:30] VITALS: BP 148/101; PULSE 92
--- NOTE | 2020-10-09 05:44 | EDM.PDOC ---
ED HPI GENERAL MEDICAL PROBLEM - General Chief Complaint: Flank Pain Stated Complaint: right side pain Time Seen by Provider: 10/09/20 05:36 - History of Present Illness INITIAL COMMENTS - FREE TEXT/NARRATIVE: 50-year-old female presents the emergency room with right flank pain. This pain woke her up this morning pretty sudden onset started on the right flank radiating into the abdomen and then she describes the pain coming from her low back that radiates around her side and back towards the front of her abdomen. She noticed some milder pain on Sunday night and this is progressively gotten worse. 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 Patient has not noticed any burning or frequency with urination no fevers or chills. When the pain is at its worse she has some nausea. No vomiting. Patient has had a appendectomy, partial hysterectomy and before this and endometrial ablation she is also had a tubal ligation. Right Flank Pain Score (Numeric/FACES): 10 - Related Data Allergies Allergy/AdvReac Type Severity Reaction Status Date / Time Penicillins Allergy Severe Hives Verified 10/09/20 05:27 Home Meds: Home Meds lisinopriL [Lisinopril] 10 mg PO DAILY 02/03/20 [History] Cyclobenzaprine [Flexeril] 10 mg PO TID #12 tab 10/09/20 [Rx] Past Medical History HEENT History: Reports: Impaired Vision Other HEENT History: wears contacts Cardiovascular History: Reports: Hypertension - Past Surgical History GI Surgical History: Reports: Appendectomy Female Surgical History: Reports: Endometrial Ablation, Hysterectomy, Tubal Ligation Social & Family History - Tobacco Use Tobacco Use Status *Q: Never Tobacco User - Caffeine Use Caffeine Use: Reports: None - Living Situation & Occupation Living situation: Reports: , with Spouse Occupation: Employed ([employer]) ED ROS GENERAL - Review of Systems Review Of Systems: See Below Constitutional: Reports: No Symptoms HEENT: Reports: No Symptoms Respiratory: Reports: No Symptoms Cardiovascular: Reports: No Symptoms GI/Abdominal: Reports: Abdominal Pain, Nausea. Denies: Constipation, Diarrhea, Vomiting : Reports: Flank Pain. Denies: Discharge, Frequency, Hematuria, Urgency Musculoskeletal: Reports: Back Pain Skin: Reports: No Symptoms Neurological: Reports: No Symptoms ED EXAM, GI/ABD - Physical Exam Exam: See Below Exam Limited By: No Limitations General Appearance: Alert, No Apparent Distress Head: Atraumatic, Normocephalic Neck: Normal Inspection, Supple. No: Lymphadenopathy (L), Lymphadenopathy (R) Cardiovascular: Regular Rate, Rhythm, No Edema, No Murmur GI/Abdominal Exam: Normal Bowel Sounds, Soft, Non-Tender Back Exam: Normal Inspection. No: CVA Tenderness (L), CVA Tenderness (R) Course - Vital Signs Last Recorded V/S: Last Vital Signs Temp 37.3 C 10/09/20 05:27 Pulse 92 10/09/20 05:27 Resp 16 10/09/20 05:27 BP 148/101 H 10/09/20 05:27 Pulse Ox 100 10/09/20 05:27 - Orders/Labs/Meds Orders: Active Orders 24 hr Category Date Time Status Lactated Ringers [Ringers, Lactated] 1,000 ml Med 10/09/20 06:15 Active IV ASDIRECTED Medication Orders Lactated Ringer's (Ringers, Lactated) 1,000 mls @ 100 mls/hr IV ASDIRECTED ESTEFANÍA Last Admin: 10/09/20 06:15 Dose: 100 mls/hr Documented by: CINTHIA Labs: Laboratory Tests 10/09/20 10/09/20 10/09/20 Range/Units 05:54 06:08 06:08 WBC 7.42 (3.98-10.04) K/mm3 RBC 4.11 (3.98-5.22) M/mm3 Hgb 13.8 (11.2-15.7) gm/dl Hct 41.4 (34.1-44.9) % MCV 100.7 H (79.4-94.8) fl MCH 33.6 H (25.6-32.2) pg MCHC 33.3 (32.2-35.5) g/dl RDW Std Deviation 45.1 (36.4-46.3) fL Plt Count 234 (182-369) K/mm3 MPV 9.6 (9.4-12.3) fl Neut % (Auto) 65.5 (34.0-71.1) % Lymph % (Auto) 23.2 (19.3-51.7) % [place] % (Auto) 8.5 (4.7-12.5) % Eos % (Auto) 2.2 (0.7-5.8) Baso % (Auto) 0.5 (0.1-1.2) % Neut # (Auto) 4.86 (1.56-6.13) K/mm3 Lymph # (Auto) 1.72 (1.18-3.74) K/mm3 [place] # (Auto) 0.63 H (0.24-0.36) K/mm3 Eos # (Auto) 0.16 (0.04-0.36) K/mm3 Baso # (Auto) 0.04 (0.01-0.08) K/mm3 Sodium 142 (136-145) mEq/L Potassium 3.8 (3.5-5.1) mEq/L Chloride 104 (98-107) mEq/L Carbon Dioxide 25 (21-32) mEq/L Anion Gap 16.8 H (5-15) BUN 13 (7-18) mg/dL Creatinine 0.9 (0.55-1.02) mg/dL Est Cr Clr Drug Dosing 54.91 mL/min Estimated GFR (MDRD) > 60 (>60) mL/min BUN/Creatinine Ratio 14.4 (14-18) Glucose 114 H (74-106) mg/dL Calcium 8.9 (8.5-10.1) mg/dL Total Bilirubin 0.4 (0.2-1.0) mg/dL AST 119 H (15-37) U/L ALT 110 H (14-59) U/L Alkaline Phosphatase 140 H (46-116) U/L Total Protein 7.4 (6.4-8.2) g/dl Albumin 3.7 (3.4-5.0) g/dl Globulin 3.7 gm/dL Albumin/Globulin Ratio 1.0 (1-2) Urine Color Light yellow (Yellow) Urine Appearance Slt cloudy H (Clear) Urine pH 6.0 (5.0-8.0) Ur Specific [place] > or = 1.030 (1.005-1.030) Urine Protein Negative (Negative) Urine Glucose (UA) Negative (Negative) Urine Ketones Negative (Negative) Urine Occult Blood Trace-intact H (Negative) Urine Nitrite Negative (Negative) Urine Bilirubin Negative (Negative) Urine Urobilinogen 0.2 (0.2-1.0) Ur Leukocyte Esterase Negative (Negative) Urine RBC 0-5 (0-5) /hpf Urine WBC 0-5 (0-5) /hpf Ur Squamous Epith Cells 0-5 (0-5) /hpf Urine Bacteria Moderate H (FEW) /hpf Urine Mucus Moderate H (FEW) /hpf Meds: Medications Generic Name Dose Route Start Last Admin Trade Name Freq PRN Reason Stop Dose Admin Lactated Ringer's 1,000 mls @ 100 mls/hr 10/09/20 06:15 10/09/20 06:15 Ringers, Lactated IV 100 mls/hr ASDIRECTED ESTEFANÍA Administration Discontinued Medications Generic Name Dose Route Start Last Admin Trade Name Freq PRN Reason Stop Dose Admin Acetaminophen 975 mg 10/09/20 07:25 Tylenol PO 10/09/20 07:26 NOW ONE Cyclobenzaprine HCl 10 mg 10/09/20 07:25 Flexeril PO 10/09/20 07:26 ONETIME ONE Hydromorphone HCl 0.5 mg 10/09/20 06:04 10/09/20 06:15 Dilaudid IVPUSH 10/09/20 06:05 0.5 mg ONETIME ONE Administration Ondansetron HCl 4 mg 10/09/20 06:04 10/09/20 06:15 Zofran IVPUSH 10/09/20 06:05 4 mg ONETIME ONE Administration - Re-Assessments/Exams Free Text/Narrative Re-Assessment/Exam: 10/09/20 07:27 Laboratory evaluation is fairly unrevealing she is got some mild microscopic hematuria no significant leukocyte esterase or nitrates. I did repeat the CT with what sounds like a kidney stone but this is not the case. She seems to have of prominent stool pattern especially on the right but clinically she is not having any constipation. Her pain is aggravated with change of position. I did have the patient stand up and she could not fully stand up without difficulty. Straight leg raises are unremarkable both internal and external rotation of the hip cause some discomfort. But the pain seems to be coming from her lower lumbar area with this. I again questioned the patient about trauma and she denies any sort of specific injury. This point will start the patient on Tylenol of Flexeril. Recommend she start MiraLAX. There is still some uncertainty to her diagnosis and the patient agrees to return to the emergency room in 24 hours for recheck if not improving. Certainly return sooner if getting worse Departure - Departure Time of Disposition: 07:38 Disposition: Home, Self-Care 01 Clinical Impression: Low back pain, Abdominal pain of unknown cause - Discharge Information Referrals: Elizabeth New COMMERCIAL INSULATOR [Primary Care Provider] - Forms: ED Department Discharge Additional Instructions: Return to the emergency room with any questions problems or worsening symptoms. Return in 24 hours if not improving. Return sooner if getting worse. As we discussed the cause of your discomfort is not absolutely certain. Stay with a soft diet with lots of fluids. Start MiraLAX. Use Tylenol for the discomfort 1000 mg every 6 hours your first dose was given here in the emergency room. You have been started on Flexeril, cyclobenzaprine is the generic name. Take 1 3 times daily through the weekend. Then take [address] nightly thereafter[address] Do not drive or return to work within 12 hours of using this medication. Avoid heavy lifting. Avoid repetitive lifting until you are completely better. Follow-up in the clinic early this next week if needed. Sepsis Event Note (ED) - Evaluation Sepsis Screening Result: No Definite Risk - Focused Exam Vital Signs: Vital Signs Temp Pulse Resp BP Pulse Ox 10/09/20 05:27 37.3 C 92 16 148/101 H 100 - My Orders Last 24 Hours: My Active Orders 10/09/20 06:15 Lactated Ringers [Ringers, Lactated] 1,000 ml IV ASDIRECTED - Assessment/Plan Last 24 Hours: My Active Orders 10/09/20 06:15 Lactated Ringers [Ringers, Lactated] 1,000 ml IV ASDIRECTED
[2020-10-09] MEDS ORDERED: HYDROmorphone 0.5 MG/0.5 ML Syringe IVPUSH ONE (06:04)
[2020-10-09] MEDS ORDERED: Ondansetron 4 MG/2 ML SDV IVPUSH ONE (06:04)
[2020-10-09] MEDS ORDERED: Lactated Ringers 1,000 ML IV SCH (06:15)
--- NOTE | 2020-10-09 07:07 | CT ---
CT abdomen and pelvis Technique: Multiple axial sections were obtained from above the dome of the diaphragm inferiorly through the pubic symphysis. Intravenous and oral contrast was not utilized. Study has been performed as a ureteral stone protocol. Comparison: Prior CT abdomen and pelvis study of 11/12/19. Findings: Kidneys show no abnormal calcifications. No hydronephrosis or ureteral stone is appreciated. Right lower lung base shows a small nodule measuring about 4 mm. No additional abnormality is seen. Liver shows no focal parenchymal abnormality. Spleen appears normal. Adrenal glands show no nodule. Pancreas shows no abnormality. Gallbladder contains no calcified gallstones. Aorta shows no aneurysm. No retroperitoneal adenopathy or mesenteric abnormalities are noted. Very minimal small fat-containing umbilical hernia is noted. Prior appendectomy is noted. No pelvic mass or adenopathy is seen. Small fat-containing left inguinal hernia is noted. No free fluid or inflammatory change is appreciated. Bone window settings were reviewed which show no acute osseous finding. Impression: 1. No renal calculi, ureteral dilatation or ureteral stone is seen. 2. Previous appendectomy. 3. Minimal fat-containing umbilical hernia and slightly larger fat-containing left inguinal hernia. 4. No acute abnormality is otherwise appreciated on noncontrast CT study of the abdomen and pelvis. Diagnostic code #2
[2020-10-09] MEDS ORDERED: Cyclobenzaprine 10 MG Tab PO ONE (07:25)
[2020-10-09] MEDS ORDERED: Acetaminophen 325 MG Tab PO ONE (07:25)
== END 2020-10-09 07:51 | disposition home or self-care (01) ==
LOC: JD.ED 05:19
DX: R10.9 Unspecified abdominal pain (principal); I10 Essential (primary) hypertension; M54.5 Low back pain; Z88.0 Allergy status to penicillin; Z79.899 Other long term (current) drug therapy
CPT/HCPCS: 36415; 74176; 80053; 81001; 85025; 96374; 96375; 99284; A9270; J1170; J2405; J7120

== ENCOUNTER 2023-11-06 17:50 | Emergency (ER) | payer OTHER ==
[2023-11-06] MEDS: Sodium Chloride 0.9% 1,000 ML IV SCH (19:09)
[2023-11-06] MEDS: Sodium Chloride 0.9% 10 ML Syringe FLUSH PRN (19:09)
[2023-11-06] MEDS: Morphine 4 MG/ML Syringe IVPUSH ONE (19:10)
[2023-11-06] MEDS: Ondansetron 4 MG/2 ML SDV IVPUSH ONE (19:10)
[2023-11-06 19:12] LABS: APPEARANCE,URINE CLEAR (Clear); BILIRUBIN,URINE NEGATIVE (Negative); COLOR,URINE LIGHT YELLOW (Yellow); GLUCOSE,URINE NEGATIVE (Negative); KETONES,URINE NEGATIVE (Negative); LEUKOCYTE ESTERASE,URINE TRACE (Negative); NITRITE,URINE NEGATIVE (Negative); OCCULT BLOOD,URINE NEGATIVE (Negative); PH,URINE 6.5 (5.0-8.0); PROTEIN,URINE NEGATIVE (Negative); UROBILINOGEN,URINE 0.2 (0.2-1.0)
[2023-11-06 19:20] LABS: BASOPHILS ABSOLUTE AUTO 0.1 K/mm3 (0.0-0.2); BASOPHILS PERCENT AUTO 0.7 % (0.0-1.0); EOSINOPHILS ABSOLUTE AUTO 0.1 K/mm3 (0.0-0.4); EOSINOPHILS PERCENT AUTO 1.3 % (0.0-6.0); HEMATOCRIT 45.5 % (37.0-47.0); HEMOGLOBIN 15.6 gm/dl (12.0-16.0); IMMATURE GRAN ABSOLUTE AUTO 0.03 K/mm3 (0.00-0.05); IMMATURE GRAN PERCENT AUTO 0.3 % (0.0-0.4); LYMPHOCYTES ABSOLUTE AUTO 3.8 K/mm3 (1.0-4.8); LYMPHOCYTES PERCENT AUTO 39.5 % (24.0-44.0); MEAN CORPUSCULAR HEMOGLOBIN 31.8 pg (28.0-32.0); MEAN CORPUSCULAR HGB CONC 34.3 g/dl (32.0-36.0); MEAN CORPUSCULAR VOLUME 92.7 fl (83.0-99.0); MEAN PLATELET VOLUME 9.6 fl (9.4-12.3); MONOCYTES ABSOLUTE AUTO 0.6 K/mm3 (0.0-0.8); MONOCYTES PERCENT AUTO 5.8 % (0.0-8.0); NEUTROPHILS PERCENT AUTO 52.4 % (41.0-71.0); PLATELET COUNT,PLT 345 K/mm3 (150-400); RED BLOOD CELL COUNT 4.91 M/mm3 (4.10-5.30)
[2023-11-06 19:20] LABS: BACTERIA,URINE FEW /hpf (FEW); MUCUS,URINE FEW /hpf (FEW); RBC,URINE 0-5 /hpf (0-5); SQUAMOUS EPITHELIAL CELLS,UR 0-5 /hpf (0-5); WBC,URINE 0-5 /hpf (0-5)
[2023-11-06 19:33] LABS: A/G RATIO 1.2 (1-2); ALBUMIN 4.7 g/dl (3.4-5.0); ANION GAP 18.1 (5-15); BILIRUBIN TOTAL 0.5 mg/dL (0.2-1.0); BUN/CREATININE RATIO 17.8 (14-18); C-REACTIVE PROTEIN 0.07 mg/dL (<0.30); CALCIUM 9.9 mg/dL (8.5-10.1); CREATININE 0.9 mg/dL (0.55-1.02); EST CRCL DRUG DOSING (CG) 63.86 mL/min; MAGNESIUM 2.2 mg/dL (1.8-2.4); POTASSIUM,K 3.1 mEq/L (3.5-5.1); PROTEIN TOTAL,TP 8.7 g/dl (6.4-8.2)
[2023-11-06] MEDS: HYDROmorphone 0.5 MG/0.5 ML Syringe IVPUSH ONE ×2 (20:21→21:27)
[2023-11-06] MEDS: Iopamidol 612 MG/ML 100 ML Bottle IVPUSH ONE (21:48)
[2023-11-06 23:35] VITALS: BP 142/78; PULSE 81
== END 2023-11-06 23:10 | disposition home or self-care (01) ==
LOC: JD.ED 17:50
DX: R10.2 Pelvic and perineal pain (principal); I10 Essential (primary) hypertension; Z88.0 Allergy status to penicillin
CPT/HCPCS: 36415; 74177; 74177-26; 76830; 76830-26; 80053; 81001; 83690; 83735; 85025; 86140; 96361; 96374; 96375; 96376; 99284; 99285-25; J1170; J2270; J2405; J3490; J7030; Q9967